=== PATIENT | female | born 1950 | race Caucasian/White ===

== ENCOUNTER 2021-01-08 11:49 | Outpatient (REF) | payer MEDICARE, SELFPAY ==
[2021-01-12 13:26] LABS: Nortriptyline 91 mcg/L (50-150)
== END 2021-01-08 11:50 | disposition home or self-care (01) ==
LOC: HO.LAB 11:49
PROVIDERS: PCP Internal Medicine; Visit Provider Psychiatry & Neurology Psychiatry
DX: F32.5 Major depressive disorder, single episode, in full remission (principal); Z79.899 Other long term (current) drug therapy
CPT/HCPCS: 36415; 80335

== ENCOUNTER → 2022-08-11 11:07 | Outpatient (BNVA) | payer MEDICARE, SELFPAY | PROVIDERS: PCP Internal Medicine; Visit Provider Psychiatry & Neurology Psychiatry | DX: F32.5 Major depressive disorder, single episode, in full remission (principal); E78.00 Pure hypercholesterolemia, unspecified | CPT/HCPCS: 90833; 99212 ==

== ENCOUNTER 2023-03-16 14:31 | Outpatient (AMB) | payer MEDICARE, SELFPAY ==
--- NOTE | 2023-03-16 13:56 | A.OFFPSYCH_ITS ---
Intake Intake Visit Reasons: depression Allergies bactrim Allergy (Intermediate, Uncoded 08/11/22 11:25) Rash Medication List - Last Reconciled 03/16/23 by Kiran Calvin MD clindamycin phosphate 1% topical estradiol 0.01%(0.1mg/gram) grams vaginal nortriptyline 50 mg PO BEDTIME simvastatin 40 mg PO BEDTIME HPI- Psychiatric Chief Complaint: depression HPI Narrative: Pt has been doing quite well no breakthrough depression has close friends . He has begun dancing again. Continues on nortriptyline manages side effect of chronic constipation. Patient with good quality of life stable no breakthrough depressive episodes very minimal occasionally bout for a day or two Past Psychiatric History: hx recurrent Mental Status Exam Mental Status Exam Narrative: Mental Status Exam Narrative: Appearance: Casually dressed Behavior: Cooperative appropriate psychomotor: Within normal limits Speech: Normal volume and prosody Thought proccess logical and goal-directed Thought content: Future oriented no self-harming thoughts Mood: Euthymic Affect: Appropriate to mood full affect SI:denies HI:denies VH/AH:none Delusions: None Insight/judgment: Good insight and judgment Memory/cog: Intact Assessment and Plan Assessment & Plan (1) Major depression in full remission: Status: Acute Code(s): F32.5 - Major depressive disorder, single episode, in full remission Plan enjoys dance very actice no complaints of side effects no new medical problems does not wish to try to taper down has been stable for an extended period of sallie e Counseling and coordination of Care Details: I spent [30] minutes reviewing the record, seeing the patient and documenting in the medical record. Counseling provided to the patient/caregiver as outlined below. Addressed patient/caregiver concerns regarding current medication regime including effective adherence. Addressed patient/caregiver concerns regarding diagnosis and prognosis including accuracy of diagnosis, prognosis over time, impact of diagnosis. Addressed patient/caregiver concerns regarding impact of recent stressors. 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
== END 2023-03-16 14:34 | disposition home or self-care (01) ==
LOC: HO.HOP 14:31
PROVIDERS: PCP Internal Medicine; Visit Provider Psychiatry & Neurology Psychiatry
DX: F32.5 Major depressive disorder, single episode, in full remission (principal)
CPT/HCPCS: 99214

== ENCOUNTER → 2023-03-16 14:31 | Outpatient (BNVA) | payer MEDICARE, SELFPAY | PROVIDERS: PCP Internal Medicine; Visit Provider Psychiatry & Neurology Psychiatry | DX: F32.5 Major depressive disorder, single episode, in full remission (principal) | CPT/HCPCS: 99212 ==

== ENCOUNTER 2023-07-13 11:41 | Outpatient (AMB) | payer MEDICARE, SELFPAY ==
--- NOTE | 2023-07-13 11:12 | MHC.OFFVISPS ---
Intake Intake Visit Reasons: depression Allergies bactrim Allergy (Intermediate, Uncoded 08/11/22 11:25) Rash HPI- Psychiatric Chief Complaint: depression HPI Narrative: Pt has been doing well generally mood stable has been dealing with hpv vaginal changes pt continues on nortriptyline has full range of friends mood generally quite good able to enjoy things future oriented Past Psychiatric History: hx recurrent Mental Status Exam Mental Status Exam Narrative: Mental Status Exam Narrative: Appearance: Casually dressed Behavior: Cooperative appropriate psychomotor: Within normal limits Speech: Normal volume and prosody Thought proccess logical and goal-directed Thought content: Future oriented no self-harming thoughts Mood: Euthymic Affect: Appropriate to mood full affect SI:denies HI:denies VH/AH:none Delusions: None Insight/judgment: Good insight and judgment Memory/cog: Intact Assessment and Plan Assessment & Plan (1) Major depression in full remission: Status: Acute Code(s): F32.5 - Major depressive disorder, single episode, in full remission Plan Continue nortriptyline no significant side effects noted constipation is controlled feels stable does not wish to taper Has good quality of life dancing again Medications: Refilled nortriptyline 50 mg PO BEDTIME 90 caps 1RF Counseling and coordination of Care Diagnosis and Prognosis Counseling: Adequacy of current interventions Details-Diagnosis/Prognosis counseling: pt stable on current regimen of 50 mg nortriptyline Details: I spent [] minutes reviewing the record, seeing the patient and documenting in the medical record. Counseling provided to the patient/caregiver as outlined below. Addressed patient/caregiver concerns regarding current medication regime including effective adherence. Addressed patient/caregiver concerns regarding diagnosis and prognosis including accuracy of diagnosis, prognosis over time, impact of diagnosis. Addressed patient/caregiver concerns regarding impact of recent stressors. 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
== END 2023-07-13 11:45 | disposition home or self-care (01) ==
LOC: HO.HOP 11:41
PROVIDERS: PCP Internal Medicine; Visit Provider Psychiatry & Neurology Psychiatry
DX: F32.5 Major depressive disorder, single episode, in full remission (principal)
CPT/HCPCS: 99214

== ENCOUNTER → 2023-07-13 11:41 | Outpatient (BNVA) | payer MEDICARE, SELFPAY | PROVIDERS: PCP Internal Medicine; Visit Provider Psychiatry & Neurology Psychiatry | DX: F32.5 Major depressive disorder, single episode, in full remission (principal) | CPT/HCPCS: 99212 ==

== ENCOUNTER 2023-12-21 14:30 | Outpatient (AMB) | payer MEDICARE, SELFPAY ==
--- NOTE | 2023-12-21 14:42 | MHC.OFFVISPS ---
Intake Intake Visit Reasons: depression Allergies bactrim Allergy (Intermediate, Uncoded 08/11/22 11:25) Rash HPI- Psychiatric Chief Complaint: depression HPI Narrative: Pt seen in f/u mood has been good stable visits family over time family used to run [employer] business has been traveling Has been on nortriptyline 50 mg daily this has been a stabilizing dose has multiple hobbies continues to enjoy dancing Past Psychiatric History: hx recurrent Mental Status Exam Mental Status Exam Narrative: Mental Status Exam Narrative: Appearance: Casually dressed Behavior: Cooperative appropriate psychomotor: Within normal limits Speech: Normal volume and prosody Thought proccess logical and goal-directed Thought content: Future oriented no self-harming thoughts Mood: Euthymic Affect: Appropriate to mood full affect SI:denies HI:denies VH/AH:none Delusions: None Insight/judgment: Good insight and judgment Memory/cog: Intact Assessment and Plan Assessment & Plan (1) Major depression in full remission: Status: Acute Code(s): F32.5 - Major depressive disorder, single episode, in full remission Plan Continue plan of care patient essentially stable pleasant future oriented multiple hobbies may see PCP will potentially prescribe Medications: Refilled nortriptyline 50 mg PO BEDTIME 90 caps 1RF nortriptyline 50 mg PO BEDTIME 90 caps 1RF Counseling and coordination of Care Details: I spent [] minutes reviewing the record, seeing the patient and documenting in the medical record. Counseling provided to the patient/caregiver as outlined below. Addressed patient/caregiver concerns regarding current medication regime including effective adherence. Addressed patient/caregiver concerns regarding diagnosis and prognosis including accuracy of diagnosis, prognosis over time, impact of diagnosis. Addressed patient/caregiver concerns regarding impact of recent stressors. 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
== END 2023-12-21 15:05 | disposition home or self-care (01) ==
LOC: HO.HOP 14:30
PROVIDERS: PCP Internal Medicine; Visit Provider Psychiatry & Neurology Psychiatry
DX: F32.5 Major depressive disorder, single episode, in full remission (principal)
CPT/HCPCS: 99214

== ENCOUNTER → 2023-12-21 14:30 | Outpatient (BNVA) | payer MEDICARE, SELFPAY | PROVIDERS: PCP Internal Medicine; Visit Provider Psychiatry & Neurology Psychiatry | DX: F32.5 Major depressive disorder, single episode, in full remission (principal); Z79.899 Other long term (current) drug therapy | CPT/HCPCS: 99212 ==

== ENCOUNTER 2024-04-18 14:00 | Outpatient (AMB) | payer MEDICARE, SELFPAY ==
--- NOTE | 2024-04-18 14:32 | MHC.OFFVISPS ---
Intake Intake Visit Reasons: depression Allergies bactrim Allergy (Intermediate, Uncoded 08/11/22 11:25) Rash HPI- Psychiatric Chief Complaint: depression HPI Narrative: Pt seen ib f/u mood stable some thoughts regarding her past and emotional connections and resonance . Pt has been able make herself remain healthy by developing strategies has been stable now x years. Has close relationship with woman she had close relationship when she was in school .Pt feels stable good in her life has strategies to deal with stress . Stable on nortrip x yrs Past Psychiatric History: hx recurrent Mental Status Exam Mental Status Exam Narrative: Mental Status Exam Narrative: Appearance: Casually dressed Behavior: Cooperative appropriate psychomotor: Within normal limits Speech: Normal volume and prosody Thought proccess logical and goal-directed Thought content: Future oriented no self-harming thoughts Mood: Euthymic Affect: Appropriate to mood full affect SI:denies HI:denies VH/AH:none Delusions: None Insight/judgment: Good insight and judgment Memory/cog: Intact Assessment and Plan Assessment & Plan (1) Major depression in full remission: Status: Acute Code(s): F32.5 - Major depressive disorder, single episode, in full remission Plan pt has been stable x yrs discussed f/u with her pcp and consult as needed .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 Counseling provided to the patient/caregiver as outlined below. Addressed patient/caregiver concerns regarding current medication regime including effective adherence. Addressed patient/caregiver concerns regarding diagnosis and prognosis including accuracy of diagnosis, prognosis over time, impact of diagnosis. Addressed patient/caregiver concerns regarding impact of recent stressors. 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
== END 2024-04-18 15:16 | disposition home or self-care (01) ==
LOC: HO.HOP 14:00
PROVIDERS: PCP Internal Medicine; Visit Provider Psychiatry & Neurology Psychiatry
DX: F32.5 Major depressive disorder, single episode, in full remission (principal)
CPT/HCPCS: 99214

== ENCOUNTER → 2024-04-18 14:00 | Outpatient (BNVA) | payer MEDICARE, SELFPAY | PROVIDERS: PCP Internal Medicine; Visit Provider Psychiatry & Neurology Psychiatry | DX: F32.5 Major depressive disorder, single episode, in full remission (principal); Z71.89 Other specified counseling | CPT/HCPCS: 99212 ==